=== PATIENT | female | born 1990 | race Caucasian/White ===

== ENCOUNTER 2019-08-29 14:38 | Emergency (ER) | payer OTHER ==
[~2019-08-29] VITALS: Ht 167.7 cm; Wt 68.0 kg
[~2019-08-29 14:38] MED LIST: BUPR150T6; DULO30CA; MINO80TA PO; SULF1TAB38; [UNRECOGNIZED DRUG - OTHER]
--- NOTE | 2019-08-29 15:43 | ED Head Injury ---
General Chief Complaint: Trauma-Non Activation Stated Complaint: LEFT SIDE HEAD PAIN Nursing Triage Note: Pt reports symptoms of feeling off balance, pressure to L side of head, et mild swelling. History of Present Illness Date Seen by Provider: Aug 29, 2019 Time Seen by Provider: 15:00 Initial Comments 28 year old female, was hit in the left temporal region last evening at softball practice. A ball was thrown in, hit a bucket and bounced up and hit her. Her main complaint is pressure on the left side of her head. She had a mild headache last evening but no nausea, vomiting, photophobia, visual changes, seizure activity, changes in mental status or other complaints. There was no loss of consciousness at the time of the injury. She did go to work today but had continued pressure and was referred here for imaging. No previous concussions Location Injury Occurred: [place] [facility]. Occurred: yesterday Severity: mild Location: temporal (left) Method of Injury: direct blow (. All) Loss of Consciousness: no loss of consciousness Associated Systoms: Denies Symptoms Allergies and Home Medications Allergies Coded Allergies: No Known Drug Allergies (Unverified , 08/29/19) Patient Home Medication List Home Medication List Reviewed: Yes Review of Systems Review of Systems Constitutional: no symptoms reported, see HPI Eyes: No Symptoms Reported, See HPI; Denies Photophobia, Denies Tunnel Vision, Denies Vision Changes Ears, Nose, Mouth, Throat: no symptoms reported, see HPI Respiratory: no symptoms reported, see HPI Cardiovascular: no symptoms reported, see HPI Gastrointestinal: no symptoms reported, see HPI Genitourinary: no symptoms reported, see HPI : No Musculoskeletal: no symptoms reported, see HPI Psychiatric/Neurological: No Symptoms Reported, See HPI; Denies Headache Endocrine: No Symptoms Reported, See HPI Past Vbcbevv-Lqzgoc-Dhhnbj Hx Past Med/Social Hx: Reviewed Nursing Past Med/Soc Hx Patient Social History Alcohol Use: Denies Use Recreational Drug Use: No Smoking Status: Never a Smoker 2nd Hand Smoke Exposure: No Recent Foreign Travel: No Contact w/Someone Who Travel: No Recent Infectious Disease Expo: No Past Medical History Surgeries: Yes (Jaw) Section, Orthopedic, Tonsillectomy Respiratory: No Cardiac: No Neurological: No Genitourinary: No Gastrointestinal: No Musculoskeletal: No Endocrine: No HEENT: No Cancer: No Psychosocial: No Integumentary: No Physical Exam Vital Signs Vital Signs - First Documented 08/29/19 14:54 Temp 37.0 Pulse 75 Resp 16 B/P (MAP) 112/77 (89) Pulse Ox 100 O2 Delivery Room Air Capillary Refill : Less Than 3 Seconds Height, Weight, BMI Height: '" Weight: lbs. oz. kg; 24.00 BMI Method: General Appearance: WD/WN, no apparent distress HEENT: PERRL/EOMI, normal ENT inspection, TMs normal, pharynx normal Neck: non-tender, full range of motion, supple, normal inspection Cardiovascular: normal peripheral pulses, regular rate, rhythm Respiratory: chest non-tender, lungs clear, normal breath sounds Gastrointestinal: normal bowel sounds, non tender, soft Psychiatric: alert, oriented x 3 Cra[place] Nerves: normal hearing, normal speech, PERRL Coordination/Gait: normal finger to nose, normal gait, negative Romberg's sign, other (ambulates with a steady gait) Motor/Sensory: no motor deficit Skin: normal color, warm/dry [place] Coma Score Best Eye Response: (4) Open Spontaneously Best Verbal Response: (5) Oriented Best Motor Response: (6) Obeys Commands [place] Total: 15 Progress/Results/Core Measures Results/Orders My Orders Orders - GRACIA SOLANO Urine Bedside (08/29/19 15:31) Ct Head Wo (08/29/19 15:31) Vital Signs/I&O 08/29/19 08/29/19 14:54 16:25 Temp 37.0 37.0 Pulse 75 68 Resp 16 16 B/P (MAP) 112/77 (89) 102/68 (89) Pulse Ox 100 99 O2 Delivery Room Air Room Air Blood Pressure Mean: 89 Progress Progress Note : Time: 15:00 Progress Note Patient seen and evaluated, risks versus benefit us CT of the head were discussed with the patient and her mother. Patient agreed to proceed. 1615 CT head shows no acute changes. Results discussed with the patient. Discharge instructions and return precautions reviewed. Diagnostic Imaging Diagonstic Imaging: CT Plain Films/CT/US/NM/MRI: chest Comments NAME: HERNANDEZ GREENBERG MED REC#: [id number] PT STATUS: REG ER : 1990 PHYSICIAN: GRACIA SOLANO ADMIT DATE: 08/29/19/ER Signed Date of Exam:08/29/19 CT HEAD WO PROCEDURE: CT head without contrast. TECHNIQUE: Multiple contiguous axial images were obtained through the brain without the use of intravenous contrast. Auto Exposure Controls were utilized during the CT exam to meet ALARA standards for radiation dose reduction. INDICATION: Hit by softball in left head, now with headache and pressure. FINDINGS: The ventricles and sulci are within normal limits. There is no hydrocephalus or cerebral edema. There is no midline shift or mass effect. There is no intracranial mass, hemorrhage, or extra-axial fluid collection. The visualized paranasal sinuses and mastoid air cells are clear. There are no regional areas of decreased attenuation appreciated to suggest an acute CVA. IMPRESSION: No acute intracranial abnormality. Dictated by: Dictated on workstation # [id number] Dict: 08/29/19 1555 Trans: 08/29/19 1610 [id number] Interpreted by: NERY MARLEY MD Electronically signed by: NERY MARLEY MD 08/29/19 1610 Reviewed: Reviewed by Me Departure Impression Primary Impression: Mild closed head injury Qualified Codes: S09.90XA - Unspecified injury of head, initial encounter Additional Impression: Contusion Qualified Codes: S00.03XA - Contusion of scalp, initial encounter Disposition: 01 HOME, SELF-CARE Condition: Improved Departure-Patient Inst. Decision time for Depature: 16:15 Referrals: NO,LOCAL PHYSICIAN (PCP) Primary Care Physician Patient Instructions: Minor Head Injury (DC) Add. Discharge Instructions: Increase water intake, 16 ounces every 2 hours while awake. You may take Tylenol 650 mg every 8 hours as needed for headache. Progress activity as tolerated. Brain rest: limit time on phone, computer, tv. Rest in a dark room. All discharge instructions reviewed with patient and/or family. Voiced understanding. GRACIA SOLANO Aug 29, 2019 15:43
--- NOTE | 2019-08-29 15:58 | Diagnostic Imaging Report ---
PROCEDURE: CT head without contrast. TECHNIQUE: Multiple contiguous axial images were obtained through the brain without the use of intravenous contrast. Auto Exposure Controls were utilized during the CT exam to meet ALARA standards for radiation dose reduction. INDICATION: Hit by softball in left head, now with headache and pressure. FINDINGS: The ventricles and sulci are within normal limits. There is no hydrocephalus or cerebral edema. There is no midline shift or mass effect. There is no intracranial mass, hemorrhage, or extra-axial fluid collection. The visualized paranasal sinuses and mastoid air cells are clear. There are no regional areas of decreased attenuation appreciated to suggest an acute CVA. IMPRESSION: No acute intracranial abnormality. Dictated by: Dictated on workstation # [id number]
[2019-08-29 16:25] VITALS: BP 102/68
--- OUTSIDE RECORDS SUMMARY | 2019-08-31 14:18 | XMS REPORT | Continuity of Care Document ---
Author Organization Unknown Address Unknown Phone Unavailable Allergies Active Description Code Type Severity Reaction Onset Reported/Identified Relationship to Patient Clinical Status Yes No Known Drug Allergies [id number] Drug Allergy Unknown N/A 08/29/2019 Medications There is no data. Problems There is no data. Procedures There is no data. Results There is no data. Encounters ACCT No. Visit Date/Time Discharge Status Pt. Type Provider Facility Loc./Unit Complaint [id number] 08/29/2019 14:40:00 020 16:25:00 DIS Emergency GRACIA SOLANO [facility] ER LEFT SIDE HEAD PAIN
== END 2019-08-29 16:25 | disposition home or self-care (01) ==
LOC: MERGE 14:40 → ER 14:40
DX: S09.90XA Unspecified injury of head, initial encounter (principal); S00.83XA Contusion of other part of head, initial encounter; R40.2142 Coma scale, eyes open, spontaneous, at arrival to emergency department; R40.2252 Coma scale, best verbal response, oriented, at arrival to emergency department; R40.2362 Coma scale, best motor response, obeys commands, at arrival to emergency department; W21.07XA Struck by softball, initial encounter; Y93.64 Activity, baseball; Y92.39 Other specified sports and athletic area as the place of occurrence of the external cause
CPT/HCPCS: 70450; 84703